=== PATIENT | female | born 1965 | race Caucasian/White ===

== ENCOUNTER → 2017-06-14 | Outpatient (CLI) | payer OTHER ==
[~2017-06-14] MED LIST: LO LOESTRIN FE1 EACH; PREVACID15 MG; ZOFRAN 4 MG ORAL4 M1 DIS
== END ==
LOC: M.ULTRA 11:00
DX: E04.2 Nontoxic multinodular goiter (principal)

== ENCOUNTER → 2017-08-19 | Outpatient (CLI) | payer OTHER | LOC: M.RAD 12:10 | DX: M54.5 Low back pain (principal); R10.2 Pelvic and perineal pain ==

== ENCOUNTER → 2018-07-09 | Outpatient (CLI) | payer OTHER | LOC: M.ULTRA 08:00 | DX: E04.2 Nontoxic multinodular goiter (principal) ==